=== PATIENT | female | born 1965 | race Caucasian/White ===

== ENCOUNTER 2019-02-17 12:12 | Emergency (ER) | payer BC ==
[~2019-02-17] VITALS: Ht 157.5 cm; Wt 118.0 kg
[2019-02-17] MEDS ORDERED: DIAZEPAM 5 MG TABLET PO ONE (13:00)
[2019-02-17] MEDS ORDERED: ONDANSETRON 4MG ODT PO ONE (13:00)
[2019-02-17] MEDS ORDERED: MORPHINE SULFATE 10 MG/ML CPJ IM ONE (13:00)
[2019-02-17 14:54] VITALS: BP 113/73
== END 2019-02-17 15:11 | disposition home or self-care (01) ==
LOC: ER 12:46
DX: G89.29 Other chronic pain (principal); M54.5 Low back pain; M54.30 Sciatica, unspecified side; E66.9 Obesity, unspecified
CPT/HCPCS: 93971; 96372; 99284; J2270; Q0162